=== PATIENT | female | born 2000 | race African-American/Black ===

== ENCOUNTER 2020-07-19 14:59 | Emergency (ER) | payer OTHER, MEDICAID, SELFPAY ==
[2020-07-19 15:16] VITALS: BP 123/63; PULSE 71; RESP 16; TEMP 37.6; O2SAT 100
[2020-07-19] MEDS: KETOROLAC (*BKC) 60 MG/2 ML VIAL IM (15:50)
[2020-07-19] MEDS: diphenhydrAMINE HCl INJ 50 MG/ML VIAL IM (15:51)
--- NOTE | 2020-07-19 16:13 | ED.HA ---
HPI - Headache General Chief Complaint: Headache Stated Complaint: headache Time Seen by Provider: 07/19/20 15:23 Source: patient and RN notes reviewed Mode of arrival: ambulatory Limitations: no limitations History of Present Illness HPI Narrative: Patient presents today complaining of a headache x2 days. Located in the frontal area. States it waxes and wanes throughout the day. States the headache is present when she wakes up in the mornings. Denies any exacerbating or relieving factors. Denies nasal congestion or sinus pressure. Denies dizziness, lightheadedness, nausea or vomiting, vision changes, recent illness. Currently rates her pain 5/10. She has been taking Advil and Aleve without relief. Last dose was yesterday. She has not had anything today for pain. Denies history of headaches or migraines. Patient called her PCP 2 days ago and was told to wait the headache out or go to urgent care for evaluation. Patient states similar headache on June 27 that lasted 10 days. Denies worst headache ever. MD elicited complaint: headache Related Data Allergies Allergy/AdvReac Type Severity Reaction Status Date / Time No Known Allergies Allergy Verified 07/19/20 15:24 Review of Systems Review of Systems: Narrative: CONSTITUTIONAL: Denies body aches, fever, chills, or sweats. EYES: Denies visual changes, redness, or discharge. Denies photophobia. ENT: Denies rhinorrhea, congestion, sore throat, or otalgia. Denies phonophobia CARDIOVASCULAR: Denies chest pain, palpitations, or edema. RESPIRATORY: Denies cough or dyspnea. GASTROINTESTINAL: Denies abdominal pain, nausea, vomiting, or diarrhea. GENITOURINARY: Denies dysuria or hematuria. SKIN: Denies rash, itching, or wounds. MUSCULOSKELETAL: Denies back pain, joint pain, or myalgia. NEUROLOGIC: Denies numbness, tingling, or weakness. + Headache PSYCH: Denies depression or anxiety. PMFSH Comments At time of signature, I have reviewed and agree with nursing past medical, surgical, social and family history unless otherwise noted. Please see nursing chart for further information. There is no relevant family history pertinent to the presenting complaint Exam Narrative: Exam Narrative: GENERAL: Well-appearing, well-nourished, and in no acute distress. HEAD: Normocephalic, atraumatic. EYES: EOMI. PERRL. No redness or drainage. Conjunctivae normal. ENT: Mucous membranes pink and moist. Nares clear. No rhinorrhea. TMs normal bilaterally. Throat normal. Uvula midline. NECK: Normal AROM. Supple. No lymphadenopathy. CHEST: No respiratory distress. Clear to auscultation. HEART: Regular rate and rhythm. No murmur appreciated. EXTREMITIES: Normal range of motion. No edema. SKIN: Warm, dry, no rash. Capillary refill normal. Normal skin turgor. Pedal pulses normal. Radial pulses normal. NEURO: No focal deficits. Alert and oriented x3. Gait steady. Hand benefit specialist equal and strong. Biceps strength equal and strong. Foot push and pulls equal and strong. Distal sensation intact. PSYCH: Normal affect. No signs of depression or anxiety. Course Course Emergency Course: 1616- Pain currently 11/01 after IM toradol and benadryl. Anticipatory guidance given for home. Vital Signs Vital signs: Vital Signs Temperature 99.6 F 07/19/20 15:16 Pulse Rate 71 07/19/20 15:16 Respiratory Rate 16 07/19/20 15:16 Blood Pressure 123/63 07/19/20 15:16 Pulse Oximetry 100 07/19/20 15:16 Temperature 99.6 F 07/19/20 15:16 Pulse Rate 71 07/19/20 15:16 Respiratory Rate 16 07/19/20 15:16 Blood Pressure 123/63 07/19/20 15:16 Pulse Oximetry 100 07/19/20 15:16 Reviewed. Pt has been instructed to follow up with her PCP regarding her elevated blood pressure today. MDM - Headache Differential Diagnosis Differential diagnosis: Likely migraine, tension headache, headache and sinusitis Critical Care Time Critical Care Time Critical Care Time: No Discharge Plan Dis
== END 2020-07-19 16:31 | disposition home or self-care (01) ==
PROVIDERS: Emergency Provider Nurse Practitioner
DX: R51.9 Headache, unspecified (principal)
CPT/HCPCS: 96372; 99214; G0463; J1200; J1885